=== PATIENT | female | born 1985 | race Caucasian/White ===

== ENCOUNTER 2016-12-31 15:38 | Emergency (ER) | payer MEDICAID | END 2017-01-01 03:00 | disposition home or self-care (01) | LOC: D.ER 15:38 | DX: N39.0 Urinary tract infection, site not specified (principal); E87.6 Hypokalemia; N18.9 Chronic kidney disease, unspecified; E03.9 Hypothyroidism, unspecified; F17.200 Nicotine dependence, unspecified, uncomplicated ==

== ENCOUNTER → 2016-12-31 21:28 | Emergency (ER) | payer MEDICAID ==
[2016-12-31 22:55] LABS: APPEARANCE CLEAR (CLEAR); BACTERIA MANY /hpf (NONE SEEN); BILIRUBIN NEGATIVE (NEGATIVE); COLOR YELLOW (YELLOW); EPITHELIAL CELLS 0-5 /hpf (0-5); GLUCOSE NEGATIVE (NEGATIVE); KETONE NEGATIVE (NEGATIVE); LEUKOCYTE ESTERASE TRACE (NEGATIVE); NITRITE POSITIVE (NEGATIVE); PROTEIN TRACE mg/dL (NEGATIVE); SPECIFIC GRAVITY 1.015 (1.005-1.020); UROBILINOGEN NORMAL (NORMAL)
[2017-01-01 00:03] LABS: BASOPHILS 0.8 % (0-2); EOSINOPHILS 4.4 % (0-7); HEMATOCRIT 28.2 % (36.0-48.0); IMMATURE GRANULOCYTES 0.2 % (0-5); LYMPHOCYTES 23.2 % (15-50); MCH 21.3 pg (26.0-34.0); MCHC 28.4 g/dL (31.0-37.0); MCV 75.2 fL (80.0-100.0); MONOCYTES 6.2 % (2-11); NEUTROPHILS 65.2 % (40-80); PLATELET COUNT 438 10x3/uL (130-400); RBC 3.75 10x6/uL (4.00-5.40); RDW 19.2 % (11.5-14.5); WBC 8.6 10x3/uL (4.8-10.8)
[2017-01-01 00:23] LABS: HCG SERUM NEGATIVE (NEGATIVE)
[2017-01-01 01:21] LABS: CALCIUM 8.5 mg/dL (8.5-10.1); CHLORIDE - SERUM 107 mmol/L (98-107); CREATININE - SERUM 0.9 mg/dL (0.6-1.3); SODIUM 140 mmol/L (136-145); UREA NITROGEN 17 mg/dL (7-18); eGFR NON AFRICAN AMERICAN 77 mL/min (90-120)
[2017-01-01 01:24] LABS: CALC OSMOLALITY 278 mosm/kg (275-300); GLUCOSE 70 mg/dL (74-106)
[2017-01-01 01:26] LABS: POTASSIUM - SERUM 2.9 mmol/L (3.5-5.1)
== END | disposition left against medical advice (07) ==
LOC: D.ER 21:28
PROVIDERS: Emergency Medicine
DX: R10.30 Lower abdominal pain, unspecified (principal)